=== PATIENT | male | born 1955 | race Caucasian/White ===

== ENCOUNTER 2018-12-10 06:10 | Day surgery (SDC) | payer OTHER ==
[2018-12-09 14:49] VITALS: BMI 31.7
[2018-12-10] MEDS ORDERED: MIDAZOLAM HCL 2 MG/2 ML SINGLE DOSE VIAL ONE ×3 (07:31→07:40)
[2018-12-10] MEDS ORDERED: ROPIVACAINE HCL 0.5% 30ML VIAL ONE (07:33)
[2018-12-10] MEDS ORDERED: PROPOFOL 20 ML ONE ×3 (07:39)
[2018-12-10] MEDS ORDERED: SUCCINYLCHOLINE CHLORIDE 200 MG/10 ML SYRINGE ONE (07:39)
[2018-12-10] MEDS ORDERED: ROCURONIUM BROMIDE 50 MG/5 ML SYRINGE ONE (07:40)
--- NOTE | 2018-12-10 07:57 | HP ---
Satellite [facility] - Chief Complaint Chief Complaint: left elbow pain - Past Medical History Allergies/Adverse Reactions: Allergies Allergy/AdvReac Type Severity Reaction Status Date / Time apple Allergy Verified 12/10/18 06:57 No Known Drug Allergies Allergy Verified 12/10/18 06:57 peach Allergy Verified 12/10/18 06:57 pear Allergy Verified 12/10/18 06:57 plum Allergy Verified 12/10/18 06:57 eggplant Allergy Uncoded 12/10/18 06:57 - Current Medications Current Medications: Home Medications Medication Instructions Recorded Aspirin [ASA -] 81 mg PO DAILY 12/09/18 Lisinopril 10 mg PO DAILY 12/09/18 Satellite Physical Exam - Physical Examination Vital Signs: Vital Signs Period Temp Pulse Resp BP Sys/Dueñas Pulse Ox Last 24 Hr 97.7 F-97.7 F 72-72 20-20 129-129/74-74 98 General Appearance: Well Nourished, Well Developed, Alert & Oriented x3 ENT: Clear Lung: Normal air movement Heart: Regular rate & rhythm Extremities: Other (left elbow- + ttp laterally, incr pain with wrist extension , full rom, nvi) Neurological: Intact, Alert, Oriented Satellite Impression/Plan - Impression/Plan Impression: left elbow lateral epicondylitis, ecrb tear Operative Procedure: left lateral epicondylectomy, ecrb repair Date to be Performed: 12/10/18
[2018-12-10] MEDS ORDERED: ONDANSETRON 4 MG/2 ML VIAL IVPUSH PRN (08:05)
[2018-12-10] MEDS ORDERED: oxyCODONE HCL 5 MG TABLET PO PRN (08:05)
[2018-12-10] MEDS ORDERED: ceFAZolin SODIUM 1 GM VIAL IVPB ONE (08:15)
[2018-12-10] MEDS ORDERED: LACTATED RINGERS SOLUTION 1,000 ML IV SCH (08:15)
[2018-12-10] MEDS ORDERED: EPHEDRINE SULFATE/0.9% NACL/PF 50 MG/10 ML SYRINGE NR ONE (08:27)
[2018-12-10 08:39] LABS: URINE APPEARANCE CLEAR; URINE BILIRUBIN NEGATIVE (NEGATIVE); URINE COLOR YELLOW; URINE GLUCOSE (UA) TRACE (NEGATIVE); URINE KETONE NEGATIVE (NEGATIVE); URINE LEUK ESTERASE NEGATIVE (NEGATIVE); URINE NITRITE NEGATIVE (NEGATIVE); URINE PROTEIN NEGATIVE (NEGATIVE); URINE UROBILINOGEN 0.2 mg/dL (0.2-1.0)
--- NOTE | 2018-12-10 09:08 | OP ---
Operative Note - Note: Operative Date: 12/10/18 ([facility]) Pre-Operative Diagnosis: left elbow lateral epicondylitis, ecrb tear Operation: left elbow lateral epicondylectomy, ECRB repair Post-Operative Diagnosis: Same as Pre-op Surgeon: Fady Soto Anesthesia: General, Local Estimated Blood Loss (mls): 0 (tourniquet) Operative Report Dictated: Yes
[2018-12-10] MEDS ORDERED: DEXAMETHASONE SOD PHOSPHATE 4 MG/1 ML VIAL ONE (09:27)
[2018-12-10] MEDS ORDERED: ceFAZolin SODIUM 1 GM VIAL ONE (09:27)
--- NOTE | 2018-12-10 09:41 | OP ---
Operative Note - Note: Operative Date: 12/10/18 Pre-Operative Diagnosis: left elbow lateral epicondylitis, ECRB tear Operation: left elbow lateral epicondylectomy, repair of ECRB tendon Post-Operative Diagnosis: Same as Pre-op Surgeon: Fady Soto Anesthesiologist/ELECTRICAL PROSPECTING OBSERVER: Patt Teran Anesthesia: General, Local Specimens Removed: inflammatory tissue left elbow Estimated Blood Loss (mls): 0 Drains, Volume Out (mls): 0 Blood Volume Replaced (mls): 0 Fluid Volume Replaced (mls): 1,000 Operative Report Dictated: Yes
[2018-12-10 11:07] VITALS: TEMP 97.4
[2018-12-10 13:13] VITALS: BP 130/56; PULSE 90
--- NOTE | 2018-12-12 14:53 | PATH ---
Surgical Pathology Report Patient Name: JOAQUIN ROLLINS Med. Rec. #: [id number] /Age/Gender: 1955 (Age: 63) / M Account: [id number] Location: [facility] Taken: 12/09/2018 Received: 12/10/2018 Reported: 12/12/2018 Physicians: Fady Soto M.D. Specimen(s) Received LEFT ELBOW LATERAL EPICONDYLE Clinical History Lateral epicondylitis left elbow Final Diagnosis LEFT LATERAL EPICONDYLE , EXCISION: PORTIONS OF CARTILAGINOUS AND FIBROADIPOSE TISSUE WITH FOCAL DEGENERATIVE CHANGE. SEPARATE SKELETAL MUSCLE WITH NO SIGNIFICANT PATHOLOGIC CHANGE. Electronically Signed Luciano Esquivel M.D. Gross Description Received in formalin labeled "left lateral epicondyle," is a 1.3 x 1.0 x 0.2 cm aggregate of gates soft tissue and possible bone fragments. The formalin is filtered and the specimen is entirely submitted in one cassette, following decalcification. /12/10/2018 saudi12/10/2018
--- NOTE | 2018-12-15 15:53 | OP ---
DATE OF OPERATION: 12/10/2018 PREOPERATIVE DIAGNOSIS: Left elbow lateral epicondylitis and extensor carpi radialis brevis tear. POSTOPERATIVE DIAGNOSIS: Left elbow lateral epicondylitis and extensor carpi radialis brevis tear. PROCEDURE: Left elbow lateral epicondylectomy and repair of extensor carpi radialis brevis tendon. SURGEON: Fady Soto MD ASSISTANTS: None. ANESTHESIA: Patt Morales, REF-CRN. LM anesthesia, left interscalene block. DRAINS: None. COMPLICATIONS: None. SPECIMEN: Chronic inflammatory tissue, left elbow. BLOOD LOSS: None. BLOOD GIVEN: None. FLUID REPLACEMENT: 1000 mL Plasmalyte. This patient is a 63-year-old male with a preoperative diagnosis of chronic left elbow lateral epicondylitis and a tear of the ECRB tendon. After understanding the potential risks, complications, alternatives, and benefits to surgery versus nonsurgical treatment, the patient elected to undergo this procedure. The patient was brought to the operating room, peripheral IV placed, IV sedation given, 1 g of IV Ancef was given. LM anesthesia was induced. He was placed into the sloppy lateral position. Tourniquet was applied to the left upper arm with ample padding. The left upper extremity was prepped and draped in sterile fashion, elevated, exsanguinated with an Esmarch bandage, tourniquet inflated to 250 mmHg. The entire case was done under 3.0 loupe magnification. A curvilinear incision was marked out over the lateral epicondyle. Incision was made with a number 15 scalpel blade. Subcutaneous hemostasis achieved with the bipolar cautery. Dissection was done with Littler scissors through the superficial fascia down to the tendon and fascia of the extensor mass coming off the lateral epicondyle. Weitlaner retractors were placed into the wound. Next, I used a fresh number 15 scalpel blade to make 3 longitudinal slits between the fibers of the ECRB. In the top slit, over the top position, I dissected down to the bone, excised some chronic inflammatory tissue and used a curette to mildly decorticate the bone and stimulate healing response. It overall looked quite clean at the end. I used an fur tinter to wash out, and 0.062 K wires were used to do multiple drill holes in the lateral epicondyle. Next, I did the same thing with a central slit and a more posterior slit. In the central slit, there was more significant chronic inflammatory tissue, which was removed and that I curetted off the bone with the curette. Multiple drill holes were placed in these 2 slits as well. The area was copiously irrigated and washed out. I used 2-0 Vicryl suture in a running baseball stitch fashion to close the 3 slits and the identified tear in the central portion of the ECRB. The area was copiously irrigated and washed out again. Next, I closed the superficial fascia with 2-0 Vicryl over the repair. Next, I used 4-0 undyed Vicryl to close the deep dermal layer, and final skin reapproximation was done with a running subcuticular 4-0 Biosyn stitch. The area was then washed and dried, covered with Steri-Strips, 4 x 4's, Webril, and a posterior 5-inch Ortho-Glass splint was applied, wrapped with 2 Yoandy bandages. Tourniquet was taken down after a total tourniquet time of 48 minutes. There were no complications during the case. The patient tolerated the procedure quite well and was brought to the ambulatory recovery room in stable condition. Sheila [id number]
== END 2018-12-10 12:20 | disposition home or self-care (01) ==
LOC: JASU-SURG 06:10
PROVIDERS: ATTEND Orthopaedic Surgery
PROC: 0JBF0ZZ Excision of Left Upper Arm Subcutaneous Tissue and Fascia, Open Approach (ICD-10-PCS; 2018-12-10)
PROC: 0LQ40ZZ Repair Left Upper Arm Tendon, Open Approach (ICD-10-PCS; principal; 2018-12-10 08:00)
DX: M77.12 Lateral epicondylitis, left elbow (principal); S56.512A Strain of other extensor muscle, fascia and tendon at forearm level, left arm, initial encounter; X58.XXXA Exposure to other specified factors, initial encounter; Y93.9 Activity, unspecified; Y92.9 Unspecified place or not applicable
CPT/HCPCS: 81003; 88304-TC; 88311-TC; 94760